=== PATIENT | female | born 1970 | race Caucasian/White ===

== ENCOUNTER → 2019-10-05 | Outpatient (CLI) | payer BC | LOC: GMA MATASK 10:35 | PROVIDERS: ATTEND Family Medicine | DX: R63.5 Abnormal weight gain (principal); E03.9 Hypothyroidism, unspecified ==

== ENCOUNTER → 2019-12-29 | Outpatient (CLI) | payer BC | LOC: GMALS 14:20 | PROVIDERS: ATTEND Nurse Practitioner Acute Care | DX: R63.5 Abnormal weight gain (principal); E03.9 Hypothyroidism, unspecified ==

== ENCOUNTER → 2020-04-04 | Outpatient (CLI) | payer BC | LOC: GMALS 13:13 | PROVIDERS: ATTEND Nurse Practitioner Acute Care | DX: R51.9 Headache, unspecified (principal) ==

== ENCOUNTER → 2020-05-23 | Outpatient (CLI) | payer BC ==
--- NOTE | 2020-05-23 10:10 | US ---
EXAM DESCRIPTION: Abdomen,Complete: Ultrasound. CLINICAL HISTORY: 49 years Female RUQ PAIN COMPARISON: None Available. TECHNIQUE: Transabdominal scanning: grayscale and Doppler modes. FINDINGS: Gallbladder: normal size, shape, echogenicity; no intraluminal stones or sludge. No fluid around the gallbladder. No wall thickening. 2.1 mm. Non-tender with transducer pressure. Common bile duct: caliber 4.6 mm within normal limits. Liver: Heterogeneously increased echogenicity; contour liver capsule smooth where seen. No fluid around the liver. Intrahepatic biliary ducts normal caliber. Doppler hepatopedal flow and normal caliber portal vein 10 mm.. Long axis right lobe 1.1 cm. Pancreas: normal size and echogenicity. Duct not seen. Complete abdominal aorta: Normal caliber from the proximal segment to the distal bifurcation.. IVC: visualized and normal caliber. Right kidney: long axis measures 9.5 cm; volume 118.3 mL.. Cortical echogenicity tab. 11 mm cortical thickness. No echogenic stones; no hydronephrosis. Left kidney: long axis measures 9.7 cm; volume 156.7 mL. Cortical echogenicity is normal.. 12 mm cortical thickness.. Minimal lobulation of the capsule. No echogenic stones; no hydronephrosis. Spleen: Normal. No focal lesions.. 10.1 cm long axis. Other: None. IMPRESSION: 1. Steatosis of the liver with normal size. Physiologic vascularity and ducts. Splenic capsule with no ascites. Pancreas unremarkable. Spleen is negative. 2. Gallbladder and common bile duct are unremarkable. 3. Bilateral kidneys with thin cortex. Minimal lobulation of the left renal capsule. Otherwise unremarkable. Normal caliber abdominal aorta and IVC. Electronically signed by: Dillon Musa MD 05/23/2020 10:09 AM [facility]
== END ==
LOC: US 05-20 13:47
DX: K76.0 Fatty (change of) liver, not elsewhere classified (principal); N28.89 Other specified disorders of kidney and ureter